=== PATIENT | male | born 1955 | race African-American/Black ===

== ENCOUNTER 2017-02-14 09:10 | Inpatient (IN) ==
[2017-02-14 11:37] LABS: Basophils % 0.4 % (0.0-0.8); Eosinophils # 0.1 10*3/uL (0.0-0.87); Eosinophils % 0.8 % (0.00-10.9); Hematocrit 37.3 VOL% (42.0-52.0); Hemoglobin 12.2 GM/DL (14.0-18.0); Immature Granulocytes % 0.4 %; Immature Granulocytes Absolute 0.03 #; Lymphocytes # 1.4 10*3/uL (1.4-4.0); Lymphocytes % 18.3 % (21.2-54.2); Mean Corpuscular HGB Conc 32.7 GM/DL (32-36); Mean Corpuscular Hemoglobin 28 PG (27-34); Mean Corpuscular Volume 86.5 FL (87-102); Mean Platelet Volume 12.5 FL (9.6-12.0); Monocytes # 0.6 10*3/uL (0.11-0.8); Monocytes % 7.7 % (1.7-12.7); Neutrophils # 5.4 10*3/uL (1.4-7.4); Neutrophils % 72.4 % (38.7-73.9); Red Blood Count 4.31 MC/CUMM (3.8-5.5); Red Cell Distribution Width 13.8 % (9.3-17.3); White Blood Count 7.5 T/CUMM (4-12)
[2017-02-14 11:41] LABS: Platelet Count 81 T/CUMM (130-400)
[2017-02-14 11:57] LABS: Platelet Estimate Decreased
[2017-02-14 12:12] LABS: Lactic Acid 0.8 MMOL/L (0.4-2.0)
[2017-02-14 12:13] LABS: Albumin 3.6 G/DL (3.4-5.0); Bilirubin,Total 0.5 MG/DL (0.2-1.0); Calcium 8.4 MG/DL (8.5-10.1); Osmolality,Calculated 296.4 MOS/KG (273-304); Potassium 3.8 MMOL/L (3.5-5.1); Total Protein 7.6 G/DL (6.4-8.3)
[2017-02-14] MEDS ORDERED: ONDANSETRON 4 MG/2 ML VIAL IV PRN (14:46)
[2017-02-14] MEDS ORDERED: ACETAMINOPHEN 325 MG TABLET PO PRN (14:46)
[2017-02-14] MEDS ORDERED: DEXTROSE 50% 25 GM/50 ML VIAL IV PRN (14:46)
[2017-02-14] MEDS ORDERED: GLUCAGON 1 MG VIAL IM PRN (14:46)
[2017-02-14] MEDS ORDERED: VANCOMYCIN INJ 1,000 MG in SODIUM CHLORIDE 0.9% 250 ML IV SCH (15:00)
[2017-02-14] MEDS ORDERED: VANCOMYCIN INJ 750 MG in SODIUM CHLORIDE 0.9% 150 ML IV PRN (15:52)
[2017-02-14] MEDS ORDERED: CARVEDILOL 12.5 MG TABLET PO PRN (15:53)
[2017-02-14] MEDS ORDERED: LOSARTAN 50 MG TABLET PO PRN (15:53)
[2017-02-14] MEDS ORDERED: amLODIPine 5 MG TABLET PO PRN (15:53)
[2017-02-14] MEDS: INSULIN LISPRO 100 UNIT/ML SUBCUT SCH ×2 (16:09→22:03)
[2017-02-14] MEDS: CIPROFLOXACIN INJ 400 MG in PREMIX 1 EACH IV SCH (16:50)
[2017-02-14] MEDS: SEVELAMER CARBONATE 800 MG TABLET PO SCH (16:52)
[2017-02-14] MEDS ORDERED: VANCOMYCIN INJ 2,000 MG in SODIUM CHLORIDE 0.9% 500 ML IV ONE (17:00)
[2017-02-15] MEDS: INSULIN LISPRO 100 UNIT/ML SUBCUT SCH ×4 (07:26→21:56)
[2017-02-15 07:32] LABS: Basophils % 0.4 % (0.0-0.8); Eosinophils # 0.1 10*3/uL (0.0-0.87); Eosinophils % 1.7 % (0.00-10.9); Hematocrit 32.7 VOL% (42.0-52.0); Immature Granulocytes % 0.4 %; Immature Granulocytes Absolute 0.02 #; Lymphocytes # 1.1 10*3/uL (1.4-4.0); Lymphocytes % 19.8 % (21.2-54.2); Mean Corpuscular HGB Conc 33.6 GM/DL (32-36); Mean Corpuscular Hemoglobin 29 PG (27-34); Mean Corpuscular Volume 85.2 FL (87-102); Mean Platelet Volume 13.2 FL (9.6-12.0); Monocytes # 0.4 10*3/uL (0.11-0.8); Monocytes % 7.7 % (1.7-12.7); Neutrophils # 3.7 10*3/uL (1.4-7.4); Platelet Count 81 T/CUMM (130-400); Red Blood Count 3.84 MC/CUMM (3.8-5.5); Red Cell Distribution Width 13.6 % (9.3-17.3); White Blood Count 5.3 T/CUMM (4-12)
[2017-02-15 07:58] LABS: Hypochromasia 1+
[2017-02-15 08:03] LABS: Albumin 3.1 G/DL (3.4-5.0); Bilirubin,Total 0.9 MG/DL (0.2-1.0); Calcium 7.9 MG/DL (8.5-10.1); Osmolality,Calculated 296.5 MOS/KG (273-304); Potassium 3.6 MMOL/L (3.5-5.1); Total Protein 6.5 G/DL (6.4-8.3)
[2017-02-15 08:13] LABS: Calcium 7.7 MG/DL (8.5-10.1); Osmolality,Calculated 294.7 MOS/KG (273-304); Potassium 3.6 MMOL/L (3.5-5.1)
[2017-02-15] MEDS: SEVELAMER CARBONATE 800 MG TABLET PO SCH ×2 (08:28→17:20)
[2017-02-15] MEDS ORDERED: HEPARIN 10,000 UNIT/10 ML VIAL IV SCH (17:30)
[2017-02-15] MEDS ORDERED: VANCOMYCIN INJ 750 MG in SODIUM CHLORIDE 0.9% 150 ML IV ONE ×2 (21:00→23:30)
[2017-02-15] MEDS: CIPROFLOXACIN INJ 400 MG in PREMIX 1 EACH IV SCH (21:53)
[2017-02-16] MEDS: INSULIN LISPRO 100 UNIT/ML SUBCUT SCH ×3 (09:04→16:40)
[2017-02-16] MEDS: SEVELAMER CARBONATE 800 MG TABLET PO SCH ×2 (09:05→17:22)
[2017-02-16 11:55] VITALS: BP 160/96
[2017-02-16] MEDS ORDERED: VANCOMYCIN INJ 750 MG in SODIUM CHLORIDE 0.9% 150 ML IV ONE (16:00)
== END 2017-02-16 20:45 | disposition home or self-care (01) | DRG 555 ==
LOC: N.ED 09:10 → N.EDINP 12:42 → SUATTDRO 12:42 → N.EDINP 15:10 → N.5E 15:46
PROVIDERS: ADMIT Internal Medicine; ATTEND Internal Medicine

== ENCOUNTER 2018-04-05 17:09 | Inpatient (IN) ==
[2018-04-05] MEDS ORDERED: ALBUTEROL/IPRATROPIUM 3 ML NEB RESP TX STA ×2 (17:45→20:57)
[2018-04-05] MEDS ORDERED: methylPREDNISolone SOD SUC 125 MG/2 ML VIAL IV STA (17:45)
[2018-04-05 18:42] LABS: Basophils % 0.5 % (0.0-0.8); Eosinophils # 0.1 10*3/uL (0.0-0.87); Eosinophils % 1.4 % (0.00-10.9); Hematocrit 37.7 VOL% (42.0-52.0); Immature Granulocytes % 0.5 %; Immature Granulocytes Absolute 0.02 #; Lymphocytes # 0.9 10*3/uL (1.4-4.0); Lymphocytes % 20.3 % (21.2-54.2); Mean Corpuscular HGB Conc 31.8 GM/DL (32-36); Mean Corpuscular Hemoglobin 30 PG (27-34); Mean Corpuscular Volume 93.5 FL (87-102); Mean Platelet Volume 12.1 FL (9.6-12.0); Monocytes # 0.3 10*3/uL (0.11-0.8); Monocytes % 7.7 % (1.7-12.7); Neutrophils # 3.1 10*3/uL (1.4-7.4); Neutrophils % 69.6 % (38.7-73.9); Platelet Count 62 T/CUMM (130-400); Red Blood Count 4.03 MC/CUMM (3.8-5.5); Red Cell Distribution Width 17.1 % (9.3-17.3); White Blood Count 4.4 T/CUMM (4-12)
[2018-04-05 18:50] LABS: INR 1.2; PT Patient Result 12.5 SECS
[2018-04-05 19:14] LABS: Albumin 3.7 G/DL (3.4-5.0); Bilirubin,Total 1.9 MG/DL (0.2-1.0); Calcium 8.9 MG/DL (8.5-10.1); Potassium 3.1 MMOL/L (3.5-5.1); Total Protein 8.2 G/DL (6.4-8.3)
[2018-04-05] MEDS ORDERED: hydrALAZINE 20 MG/1 ML VIAL IV STA (20:42)
[2018-04-05] MEDS ORDERED: LEVOFLOXACIN INJ 500 MG in PREMIX 1 EACH IV STA (20:56)
[2018-04-05] MEDS ORDERED: ALBUTEROL 2.5 MG/3 ML NEB RESP TX PRN (23:50)
[2018-04-05] MEDS ORDERED: ONDANSETRON 4 MG/2 ML VIAL IV PRN (23:58)
[2018-04-05] MEDS ORDERED: DOCUSATE SODIUM 100 MG CAPSULE PO PRN (23:58)
[2018-04-05] MEDS ORDERED: DEXTROSE 50% 25 GM/50 ML SYRINGE IV PRN (23:58)
[2018-04-05] MEDS ORDERED: GLUCAGON 1 MG VIAL IM PRN (23:58)
[2018-04-05] MEDS ORDERED: ACETAMINOPHEN 325 MG TABLET PO PRN (23:58)
[2018-04-06] MEDS: ALBUTEROL/IPRATROPIUM 3 ML NEB RESP TX SCH ×4 (00:19→19:57)
[2018-04-06] MEDS ORDERED: AZTREONAM 2,000 MG in SODIUM CHLORIDE 0.9% 100 ML IV ONE (02:00)
[2018-04-06 04:57] LABS: Basophils % 0.4 % (0.0-0.8); Hematocrit 32.4 VOL% (42.0-52.0); Hemoglobin 10.1 GM/DL (14.0-18.0); Immature Granulocytes % 0.4 %; Immature Granulocytes Absolute 0.01 #; Lymphocytes # 0.2 10*3/uL (1.4-4.0); Lymphocytes % 9.2 % (21.2-54.2); Mean Corpuscular HGB Conc 31.2 GM/DL (32-36); Mean Corpuscular Hemoglobin 29 PG (27-34); Mean Corpuscular Volume 92.6 FL (87-102); Mean Platelet Volume 13.6 FL (9.6-12.0); Monocytes # 0.1 10*3/uL (0.11-0.8); Monocytes % 2.4 % (1.7-12.7); Neutrophils # 2.2 10*3/uL (1.4-7.4); Neutrophils % 87.6 % (38.7-73.9); Platelet Count 61 T/CUMM (130-400); Red Cell Distribution Width 16.9 % (9.3-17.3); White Blood Count 2.5 T/CUMM (4-12)
[2018-04-06 05:13] LABS: Calcium 8.5 MG/DL (8.5-10.1); Osmolality,Calculated 279.8 MOS/KG (273-304); Potassium 3.3 MMOL/L (3.5-5.1)
[2018-04-06] MEDS: INSULIN LISPRO 100 UNIT/ML SUBCUT SCH ×3 (07:26→17:18)
[2018-04-06] MEDS ORDERED: PANTOPRAZOLE 40 MG TABLET PO SCH (09:00)
[2018-04-06 09:06] LABS: Band Neutrophils 1 % (0-10); Hypochromasia 1+; Lymphocytes 7 % (20-55); Platelet Estimate Decreased; Polychromasia Slight; Segmented Neutrophils 91 % (50-85); Total Cells Counted 100
[2018-04-06] MEDS: amLODIPine 5 MG TABLET PO SCH (09:35)
[2018-04-06] MEDS: SEVELAMER CARBONATE 800 MG TABLET PO SCH ×2 (09:36→17:37)
[2018-04-06] MEDS: guaiFENesin/DM ER 600-30 MG TABLET PO SCH ×2 (09:36→20:40)
[2018-04-06] MEDS: CARVEDILOL 25 MG TABLET PO SCH ×2 (09:36→17:37)
[2018-04-06] MEDS: GABAPENTIN 100 MG CAPSULE PO SCH ×3 (09:36→20:40)
[2018-04-06] MEDS: LOSARTAN 50 MG TABLET PO SCH (09:36)
[2018-04-06] MEDS: AZTREONAM 1,000 MG in SODIUM CHLORIDE 0.9% 100 ML IV SCH ×3 (09:36→20:41)
[2018-04-06] MEDS: POTASSIUM CHLORIDE 20 MEQ TABLET PO PRN ×3 (12:16→17:37)
[2018-04-06] MEDS: ATORVASTATIN 10 MG TABLET PO SCH (20:40)
[2018-04-07] MEDS: INSULIN LISPRO 100 UNIT/ML SUBCUT SCH ×5 (02:02→21:08)
[2018-04-07] MEDS: ALBUTEROL/IPRATROPIUM 3 ML NEB RESP TX SCH ×4 (02:02→19:02)
[2018-04-07] MEDS: AZTREONAM 1,000 MG in SODIUM CHLORIDE 0.9% 100 ML IV SCH ×4 (02:57→20:12)
[2018-04-07 06:25] LABS: Basophils % 0.2 % (0.0-0.8); Hematocrit 33.5 VOL% (42.0-52.0); Hemoglobin 10.6 GM/DL (14.0-18.0); Immature Granulocytes % 0.2 %; Immature Granulocytes Absolute 0.01 #; Lymphocytes # 0.5 10*3/uL (1.4-4.0); Lymphocytes % 11.2 % (21.2-54.2); Mean Corpuscular HGB Conc 31.6 GM/DL (32-36); Mean Corpuscular Hemoglobin 29 PG (27-34); Mean Corpuscular Volume 92.8 FL (87-102); Mean Platelet Volume 13.5 FL (9.6-12.0); Monocytes # 0.3 10*3/uL (0.11-0.8); Monocytes % 5.8 % (1.7-12.7); Neutrophils # 3.5 10*3/uL (1.4-7.4); Neutrophils % 82.6 % (38.7-73.9); Red Blood Count 3.61 MC/CUMM (3.8-5.5); Red Cell Distribution Width 16.7 % (9.3-17.3); White Blood Count 4.3 T/CUMM (4-12)
[2018-04-07 06:41] LABS: Platelet Count 52 T/CUMM (130-400)
[2018-04-07 06:50] LABS: Calcium 8.7 MG/DL (8.5-10.1); Osmolality,Calculated 277.2 MOS/KG (273-304); Potassium 4.6 MMOL/L (3.5-5.1)
[2018-04-07 06:51] LABS: Calcium 8.9 MG/DL (8.5-10.1); Osmolality,Calculated 275.4 MOS/KG (273-304); Potassium 4.5 MMOL/L (3.5-5.1)
[2018-04-07] MEDS: guaiFENesin/DM ER 600-30 MG TABLET PO SCH ×2 (09:17→20:12)
[2018-04-07] MEDS: SEVELAMER CARBONATE 800 MG TABLET PO SCH ×2 (09:17→16:52)
[2018-04-07] MEDS: GABAPENTIN 100 MG CAPSULE PO SCH ×3 (09:17→20:12)
[2018-04-07] MEDS: amLODIPine 5 MG TABLET PO SCH (09:17)
[2018-04-07] MEDS: LOSARTAN 50 MG TABLET PO SCH (09:17)
[2018-04-07] MEDS: CARVEDILOL 25 MG TABLET PO SCH ×2 (09:17→16:52)
[2018-04-07] MEDS: predniSONE 20 MG TABLET PO SCH (10:48)
[2018-04-07 14:57] LABS: Calcium 8.8 MG/DL (8.5-10.1); Osmolality,Calculated 280.1 MOS/KG (273-304); Potassium 4.9 MMOL/L (3.5-5.1); Total Protein 7.1 G/DL (6.4-8.3)
[2018-04-07 15:06] LABS: Basophils % 0.5 % (0.0-0.8); Eosinophils % 0.5 % (0.00-10.9); Hemoglobin 10.6 GM/DL (14.0-18.0); Immature Granulocytes % 0.2 %; Immature Granulocytes Absolute 0.01 #; Lymphocytes # 0.4 10*3/uL (1.4-4.0); Lymphocytes % 8.4 % (21.2-54.2); Mean Corpuscular HGB Conc 31.2 GM/DL (32-36); Mean Corpuscular Hemoglobin 30 PG (27-34); Mean Corpuscular Volume 94.7 FL (87-102); Mean Platelet Volume 13.5 FL (9.6-12.0); Monocytes # 0.3 10*3/uL (0.11-0.8); Monocytes % 6.3 % (1.7-12.7); Neutrophils # 3.5 10*3/uL (1.4-7.4); Neutrophils % 84.1 % (38.7-73.9); Platelet Count 51 T/CUMM (130-400); Red Blood Count 3.59 MC/CUMM (3.8-5.5); White Blood Count 4.2 T/CUMM (4-12)
[2018-04-07 15:22] LABS: INR 1.3; PT Patient Result 13.8 SECS
[2018-04-07 16:13] LABS: Platelet Estimate Decreased
[2018-04-07] MEDS: ATORVASTATIN 10 MG TABLET PO SCH (20:12)
[2018-04-07] MEDS: LEVOFLOXACIN INJ 250 MG in PREMIX 1 EACH IV SCH (20:48)
[2018-04-08] MEDS: ALBUTEROL/IPRATROPIUM 3 ML NEB RESP TX SCH ×4 (00:30→19:20)
[2018-04-08] MEDS: AZTREONAM 1,000 MG in SODIUM CHLORIDE 0.9% 100 ML IV SCH ×4 (02:59→22:38)
[2018-04-08 06:41] LABS: Hematocrit 32.4 VOL% (42.0-52.0); Hemoglobin 10.2 GM/DL (14.0-18.0); Immature Granulocytes % 0.6 %; Immature Granulocytes Absolute 0.02 #; Lymphocytes # 0.3 10*3/uL (1.4-4.0); Lymphocytes % 8.8 % (21.2-54.2); Mean Corpuscular HGB Conc 31.5 GM/DL (32-36); Mean Corpuscular Hemoglobin 29 PG (27-34); Mean Corpuscular Volume 93.4 FL (87-102); Monocytes # 0.3 10*3/uL (0.11-0.8); Monocytes % 7.9 % (1.7-12.7); Neutrophils # 2.7 10*3/uL (1.4-7.4); Neutrophils % 82.7 % (38.7-73.9); Platelet Count 49 T/CUMM (130-400); Red Blood Count 3.47 MC/CUMM (3.8-5.5); Red Cell Distribution Width 16.8 % (9.3-17.3); White Blood Count 3.3 T/CUMM (4-12)
[2018-04-08 07:08] LABS: Lymphocytes 5 % (20-55); Platelet Estimate Decreased; Segmented Neutrophils 88 % (50-85); Total Cells Counted 100
[2018-04-08 07:09] LABS: Hypochromasia 1+; Ovalocytes Slight
[2018-04-08 07:20] LABS: Albumin 2.8 G/DL (3.4-5.0); Bilirubin,Total 1.2 MG/DL (0.2-1.0); Osmolality,Calculated 283.2 MOS/KG (273-304); Potassium 4.8 MMOL/L (3.5-5.1); Total Protein 7.1 G/DL (6.4-8.3)
[2018-04-08] MEDS: INSULIN LISPRO 100 UNIT/ML SUBCUT SCH ×4 (08:55→22:34)
[2018-04-08] MEDS: SEVELAMER CARBONATE 800 MG TABLET PO SCH ×2 (08:56→16:42)
[2018-04-08] MEDS: GABAPENTIN 100 MG CAPSULE PO SCH (08:56)
[2018-04-08] MEDS: guaiFENesin/DM ER 600-30 MG TABLET PO SCH ×2 (08:56→22:33)
[2018-04-08] MEDS: predniSONE 20 MG TABLET PO SCH (08:56)
[2018-04-08] MEDS: LOSARTAN 50 MG TABLET PO SCH (09:08)
[2018-04-08] MEDS: CARVEDILOL 25 MG TABLET PO SCH ×2 (09:08→16:42)
[2018-04-08] MEDS: amLODIPine 5 MG TABLET PO SCH (09:09)
[2018-04-08 11:23] LABS: Hepatitis A Ab IgM Quant 0.47 Index; Hepatitis A Ab IgM Result Negative (Negative); Hepatitis B Core IgM Quant 0.11 Index; Hepatitis B Core IgM Result Negative (Negative); Hepatitis B Surface Ag Quant < 0.10 Index; Hepatitis B Surface Ag Result Negative (Negative); Hepatitis C Virus Ab Quant 0.06 Index; Hepatitis C Virus Ab Result Negative (Negative)
[2018-04-08] MEDS: ATORVASTATIN 10 MG TABLET PO SCH (22:33)
[2018-04-08] MEDS: GABAPENTIN 300 MG CAPSULE PO SCH (22:33)
[2018-04-09] MEDS: ALBUTEROL/IPRATROPIUM 3 ML NEB RESP TX SCH ×4 (00:03→19:59)
[2018-04-09] MEDS: AZTREONAM 1,000 MG in SODIUM CHLORIDE 0.9% 100 ML IV SCH ×4 (04:52→23:10)
[2018-04-09] MEDS: INSULIN LISPRO 100 UNIT/ML SUBCUT SCH ×4 (08:22→21:02)
[2018-04-09] MEDS: guaiFENesin/DM ER 600-30 MG TABLET PO SCH ×2 (09:04→22:15)
[2018-04-09] MEDS: SEVELAMER CARBONATE 800 MG TABLET PO SCH ×2 (09:04→17:05)
[2018-04-09] MEDS: amLODIPine 5 MG TABLET PO SCH (09:05)
[2018-04-09] MEDS: CARVEDILOL 25 MG TABLET PO SCH ×2 (09:05→17:05)
[2018-04-09] MEDS: predniSONE 20 MG TABLET PO SCH (09:05)
[2018-04-09] MEDS: LOSARTAN 50 MG TABLET PO SCH (09:05)
[2018-04-09] MEDS: GABAPENTIN 300 MG CAPSULE PO SCH (22:15)
[2018-04-09] MEDS: ATORVASTATIN 10 MG TABLET PO SCH (22:15)
[2018-04-09] MEDS: LEVOFLOXACIN INJ 250 MG in PREMIX 1 EACH IV SCH (22:15)
[2018-04-10] MEDS: ALBUTEROL/IPRATROPIUM 3 ML NEB RESP TX SCH ×4 (01:23→19:56)
[2018-04-10] MEDS: AZTREONAM 1,000 MG in SODIUM CHLORIDE 0.9% 100 ML IV SCH ×4 (05:59→22:25)
[2018-04-10] MEDS: INSULIN LISPRO 100 UNIT/ML SUBCUT SCH ×4 (08:06→22:23)
[2018-04-10] MEDS: SEVELAMER CARBONATE 800 MG TABLET PO SCH ×2 (08:30→16:42)
[2018-04-10] MEDS: guaiFENesin/DM ER 600-30 MG TABLET PO SCH ×2 (08:30→22:21)
[2018-04-10] MEDS: CARVEDILOL 25 MG TABLET PO SCH ×2 (08:30→16:42)
[2018-04-10] MEDS: predniSONE 20 MG TABLET PO SCH (08:30)
[2018-04-10] MEDS: amLODIPine 5 MG TABLET PO SCH (08:30)
[2018-04-10] MEDS: LOSARTAN 50 MG TABLET PO SCH (08:31)
[2018-04-10] MEDS: GABAPENTIN 300 MG CAPSULE PO SCH (22:21)
[2018-04-10] MEDS: ATORVASTATIN 10 MG TABLET PO SCH (22:22)
[2018-04-11] MEDS: ALBUTEROL/IPRATROPIUM 3 ML NEB RESP TX SCH ×4 (00:55→19:20)
[2018-04-11] MEDS: AZTREONAM 1,000 MG in SODIUM CHLORIDE 0.9% 100 ML IV SCH (06:44)
[2018-04-11] MEDS: INSULIN LISPRO 100 UNIT/ML SUBCUT SCH ×4 (07:42→21:24)
[2018-04-11] MEDS: SEVELAMER CARBONATE 800 MG TABLET PO SCH ×2 (08:41→16:38)
[2018-04-11] MEDS: LEVOFLOXACIN 500 MG TABLET PO SCH (08:42)
[2018-04-11] MEDS: guaiFENesin/DM ER 600-30 MG TABLET PO SCH ×2 (08:42→21:22)
[2018-04-11] MEDS: predniSONE 20 MG TABLET PO SCH (08:43)
[2018-04-11] MEDS: LOSARTAN 50 MG TABLET PO SCH (08:43)
[2018-04-11] MEDS: amLODIPine 5 MG TABLET PO SCH (08:44)
[2018-04-11] MEDS: CARVEDILOL 25 MG TABLET PO SCH ×2 (08:44→16:38)
[2018-04-11] MEDS ORDERED: TUBERCULIN SKIN TEST 0.1 ML SYRINGE INTRADERM ONE (16:08)
[2018-04-11] MEDS: GABAPENTIN 300 MG CAPSULE PO SCH (21:22)
[2018-04-11] MEDS: ATORVASTATIN 10 MG TABLET PO SCH (21:23)
[2018-04-12] MEDS: ALBUTEROL/IPRATROPIUM 3 ML NEB RESP TX SCH ×4 (00:01→19:02)
[2018-04-12] MEDS: INSULIN LISPRO 100 UNIT/ML SUBCUT SCH ×4 (09:46→20:53)
[2018-04-12] MEDS: amLODIPine 5 MG TABLET PO SCH (12:47)
[2018-04-12] MEDS: guaiFENesin/DM ER 600-30 MG TABLET PO SCH ×2 (12:47→20:53)
[2018-04-12] MEDS: predniSONE 20 MG TABLET PO SCH (12:47)
[2018-04-12] MEDS: SEVELAMER CARBONATE 800 MG TABLET PO SCH ×2 (12:47→16:55)
[2018-04-12] MEDS: CARVEDILOL 25 MG TABLET PO SCH ×2 (12:48→16:56)
[2018-04-12] MEDS: LOSARTAN 50 MG TABLET PO SCH (12:48)
[2018-04-12] MEDS: EPOETIN ALFA 2,000 UNIT/1 ML VIAL SUBCUT SCH (14:36)
[2018-04-12] MEDS: GABAPENTIN 300 MG CAPSULE PO SCH (20:53)
[2018-04-12] MEDS: ATORVASTATIN 10 MG TABLET PO SCH (20:53)
[2018-04-13] MEDS: ALBUTEROL/IPRATROPIUM 3 ML NEB RESP TX SCH ×5 (00:59→19:30)
[2018-04-13] MEDS: amLODIPine 5 MG TABLET PO SCH (08:59)
[2018-04-13] MEDS: LEVOFLOXACIN 500 MG TABLET PO SCH (09:00)
[2018-04-13] MEDS: guaiFENesin/DM ER 600-30 MG TABLET PO SCH ×2 (09:00→21:14)
[2018-04-13] MEDS: CARVEDILOL 25 MG TABLET PO SCH ×2 (09:00→16:59)
[2018-04-13] MEDS: LOSARTAN 50 MG TABLET PO SCH (09:00)
[2018-04-13] MEDS: predniSONE 20 MG TABLET PO SCH (09:00)
[2018-04-13] MEDS: SEVELAMER CARBONATE 800 MG TABLET PO SCH ×2 (09:00→16:58)
[2018-04-13] MEDS: INSULIN LISPRO 100 UNIT/ML SUBCUT SCH ×4 (09:01→21:13)
[2018-04-13] MEDS: ALUMINUM/MAGNES/SIMETH MAX STR 30 ML UDCUP PO PRN (14:46)
[2018-04-13] MEDS: ATORVASTATIN 10 MG TABLET PO SCH (21:14)
[2018-04-13] MEDS: GABAPENTIN 300 MG CAPSULE PO SCH (21:14)
[2018-04-14] MEDS: ALUMINUM/MAGNES/SIMETH MAX STR 30 ML UDCUP PO PRN ×2 (02:32→20:57)
[2018-04-14] MEDS: ALBUTEROL/IPRATROPIUM 3 ML NEB RESP TX SCH ×3 (06:55→20:00)
[2018-04-14] MEDS: INSULIN LISPRO 100 UNIT/ML SUBCUT SCH ×4 (07:50→21:05)
[2018-04-14] MEDS: SEVELAMER CARBONATE 800 MG TABLET PO SCH ×2 (08:22→17:52)
[2018-04-14] MEDS: guaiFENesin/DM ER 600-30 MG TABLET PO SCH ×2 (08:22→20:57)
[2018-04-14] MEDS: CARVEDILOL 25 MG TABLET PO SCH ×2 (08:23→17:50)
[2018-04-14] MEDS: LOSARTAN 50 MG TABLET PO SCH (08:23)
[2018-04-14] MEDS: amLODIPine 5 MG TABLET PO SCH (08:23)
[2018-04-14] MEDS: predniSONE 20 MG TABLET PO SCH (08:23)
[2018-04-14] MEDS: ATORVASTATIN 10 MG TABLET PO SCH (20:57)
[2018-04-14] MEDS: GABAPENTIN 300 MG CAPSULE PO SCH (20:57)
[2018-04-15] MEDS: ALBUTEROL/IPRATROPIUM 3 ML NEB RESP TX SCH ×4 (01:07→20:52)
[2018-04-15] MEDS: INSULIN LISPRO 100 UNIT/ML SUBCUT SCH ×4 (08:00→20:42)
[2018-04-15] MEDS: amLODIPine 5 MG TABLET PO SCH (09:00)
[2018-04-15] MEDS: guaiFENesin/DM ER 600-30 MG TABLET PO SCH ×2 (09:00→21:18)
[2018-04-15] MEDS: CARVEDILOL 25 MG TABLET PO SCH ×2 (09:00→17:21)
[2018-04-15] MEDS: SEVELAMER CARBONATE 800 MG TABLET PO SCH ×2 (09:00→17:22)
[2018-04-15] MEDS: LOSARTAN 50 MG TABLET PO SCH (09:00)
[2018-04-15] MEDS: predniSONE 20 MG TABLET PO SCH (09:00)
[2018-04-15] MEDS: EPOETIN ALFA 2,000 UNIT/1 ML VIAL SUBCUT SCH (09:30)
[2018-04-15] MEDS ORDERED: PHENOL 1.4% THROAT SPRAY 177 ML BOTTLE PO PRN (13:00)
[2018-04-15] MEDS: PANTOPRAZOLE 40 MG TABLET PO SCH (17:22)
[2018-04-15] MEDS: GABAPENTIN 300 MG CAPSULE PO SCH (21:18)
[2018-04-15] MEDS: ATORVASTATIN 10 MG TABLET PO SCH (21:18)
[2018-04-15] MEDS: LEVOFLOXACIN 500 MG TABLET PO SCH (22:19)
[2018-04-16] MEDS: ALBUTEROL/IPRATROPIUM 3 ML NEB RESP TX SCH ×2 (01:44→07:34)
[2018-04-16 05:37] LABS: Basophils % 0.2 % (0.0-0.8); Eosinophils % 0.2 % (0.00-10.9); Hematocrit 39.6 VOL% (42.0-52.0); Immature Granulocytes % 1.3 %; Immature Granulocytes Absolute 0.08 #; Lymphocytes # 0.5 10*3/uL (1.4-4.0); Lymphocytes % 8.5 % (21.2-54.2); Mean Corpuscular HGB Conc 30.3 GM/DL (32-36); Mean Corpuscular Hemoglobin 29 PG (27-34); Mean Corpuscular Volume 95.9 FL (87-102); Mean Platelet Volume 12.5 FL (9.6-12.0); Monocytes # 0.6 10*3/uL (0.11-0.8); Monocytes % 9.1 % (1.7-12.7); NRBC # 0.11 10*3/uL; Neutrophils # 5.1 10*3/uL (1.4-7.4); Neutrophils % 80.7 % (38.7-73.9); Red Blood Count 4.13 MC/CUMM (3.8-5.5); Red Cell Distribution Width 17.1 % (9.3-17.3); White Blood Count 6.3 T/CUMM (4-12)
[2018-04-16] MEDS: PANTOPRAZOLE 40 MG TABLET PO SCH (05:37)
[2018-04-16 05:41] LABS: Platelet Count 45 T/CUMM (130-400)
[2018-04-16 06:21] LABS: Calcium 7.8 MG/DL (8.5-10.1)
[2018-04-16 06:33] LABS: Potassium 5.3 MMOL/L (3.5-5.1)
[2018-04-16 06:35] LABS: Osmolality,Calculated 287.5 MOS/KG (273-304)
[2018-04-16] MEDS: INSULIN LISPRO 100 UNIT/ML SUBCUT SCH ×2 (09:12→12:22)
[2018-04-16] MEDS: SEVELAMER CARBONATE 800 MG TABLET PO SCH (09:14)
[2018-04-16] MEDS: CARVEDILOL 25 MG TABLET PO SCH (09:14)
[2018-04-16] MEDS: predniSONE 20 MG TABLET PO SCH (09:14)
[2018-04-16] MEDS: amLODIPine 5 MG TABLET PO SCH (09:14)
[2018-04-16] MEDS: guaiFENesin/DM ER 600-30 MG TABLET PO SCH (09:14)
[2018-04-16] MEDS: LOSARTAN 50 MG TABLET PO SCH (09:14)
[2018-04-16 11:43] VITALS: BP 131/74
== END 2018-04-16 14:01 | DRG 871 ==
LOC: EDUNIT# → EDBD → N.ED 17:09 → SUATTDRO 23:38 → N.EDINP 23:38 → N.2E 04-06 01:07
PROVIDERS: ADMIT Internal Medicine; ATTEND Internal Medicine

== ENCOUNTER 2018-04-20 12:53 | Inpatient (IN) ==
[2018-04-20] MEDS ORDERED: ALBUTEROL 2.5 MG/3 ML NEB RESP TX STA (14:04)
[2018-04-20 14:13] LABS: Basophils % 0.1 % (0.0-0.8); Eosinophils # 0.1 10*3/uL (0.0-0.87); Eosinophils % 1.4 % (0.00-10.9); Hematocrit 37.9 VOL% (42.0-52.0); Immature Granulocytes % 1.1 %; Immature Granulocytes Absolute 0.08 #; Lymphocytes # 0.7 10*3/uL (1.4-4.0); Lymphocytes % 8.9 % (21.2-54.2); Mean Corpuscular HGB Conc 31.7 GM/DL (32-36); Mean Corpuscular Hemoglobin 29 PG (27-34); Mean Corpuscular Volume 92.2 FL (87-102); Monocytes # 0.9 10*3/uL (0.11-0.8); Monocytes % 12.3 % (1.7-12.7); Neutrophils # 5.6 10*3/uL (1.4-7.4); Neutrophils % 76.2 % (38.7-73.9); Platelet Count 42 T/CUMM (130-400); Red Blood Count 4.11 MC/CUMM (3.8-5.5); Red Cell Distribution Width 17.1 % (9.3-17.3); White Blood Count 7.3 T/CUMM (4-12)
[2018-04-20 14:28] LABS: Albumin 2.6 G/DL (3.4-5.0); Calcium 7.3 MG/DL (8.5-10.1); Osmolality,Calculated 285.4 MOS/KG (273-304); Total Protein 6.7 G/DL (6.4-8.3)
[2018-04-20] MEDS: DOPamine 800 MG/250 ML PREMIX IV PRN (14:55)
[2018-04-20] MEDS ORDERED: ALBUMIN 25% 25 GM in PREMIX 1 EACH IV PRN (15:40)
[2018-04-20] MEDS ORDERED: DEXTROSE 50% 25 GM/50 ML VIAL IV PRN (16:01)
[2018-04-20] MEDS ORDERED: GLUCAGON 1 MG VIAL IM PRN (16:01)
[2018-04-20] MEDS ORDERED: VANCOMYCIN INJ 1,500 MG in SODIUM CHLORIDE 0.9% 500 ML IV PRN (16:57)
[2018-04-20] MEDS: methylPREDNISolone SOD SUC 125 MG/2 ML VIAL IV SCH (17:45)
[2018-04-20] MEDS: PANTOPRAZOLE 40 MG VIAL IV SCH (17:45)
[2018-04-20] MEDS ORDERED: AZTREONAM 1,000 MG in SODIUM CHLORIDE 0.9% 100 ML IV ONE (18:00)
[2018-04-20] MEDS: INSULIN LISPRO 100 UNIT/ML SUBCUT SCH (18:07)
[2018-04-20 18:30] LABS: ABG Base Excess -2.6 MMOL/L (-2.5-2.5); ABG HCO3 22.2 MMOL/L (20-26); ABG Oxygen Saturation 95.9 % (95-100); ABG PCO2 40.6 MM HG (35-48); ABG PH 7.356 (7.35-7.45); ABG PO2 83.9 MM HG (80-95)
[2018-04-20] MEDS: ALBUTEROL/IPRATROPIUM 3 ML NEB RESP TX SCH (19:18)
[2018-04-21] MEDS: ALBUTEROL/IPRATROPIUM 3 ML NEB RESP TX SCH ×4 (00:12→20:27)
[2018-04-21] MEDS: INSULIN LISPRO 100 UNIT/ML SUBCUT SCH ×4 (00:14→18:23)
[2018-04-21] MEDS: methylPREDNISolone SOD SUC 125 MG/2 ML VIAL IV SCH ×3 (00:20→15:18)
[2018-04-21] MEDS: SODIUM CHLORIDE 0.9% IV SCH ×3 (02:15→18:09)
[2018-04-21] MEDS: AZTREONAM IV SCH ×3 (02:15→18:09)
[2018-04-21] MEDS: DOPamine 800 MG/250 ML PREMIX IV PRN (04:08)
[2018-04-21 04:52] LABS: Hematocrit 41.8 VOL% (42.0-52.0); Hemoglobin 13.1 GM/DL (14.0-18.0); Immature Granulocytes % 0.2 %; Immature Granulocytes Absolute 0.01 #; Lymphocytes # 0.4 10*3/uL (1.4-4.0); Lymphocytes % 6.7 % (21.2-54.2); Mean Corpuscular HGB Conc 31.3 GM/DL (32-36); Mean Corpuscular Hemoglobin 29 PG (27-34); Mean Corpuscular Volume 93.5 FL (87-102); Monocytes # 0.1 10*3/uL (0.11-0.8); Monocytes % 1.5 % (1.7-12.7); Neutrophils # 4.8 10*3/uL (1.4-7.4); Neutrophils % 91.6 % (38.7-73.9); Platelet Count 40 T/CUMM (130-400); Red Blood Count 4.47 MC/CUMM (3.8-5.5); Red Cell Distribution Width 17.2 % (9.3-17.3); White Blood Count 5.2 T/CUMM (4-12)
[2018-04-21 05:29] LABS: Albumin 2.4 G/DL (3.4-5.0); Bilirubin,Total 0.9 MG/DL (0.2-1.0); Calcium 7.5 MG/DL (8.5-10.1); Osmolality,Calculated 284.9 MOS/KG (273-304); Total Protein 7.1 G/DL (6.4-8.3)
[2018-04-21 06:40] LABS: Band Neutrophils 2 % (0-10); Lymphocytes 8 % (20-55); Segmented Neutrophils 87 % (50-85); Total Cells Counted 100
[2018-04-21 06:41] LABS: Anisocytosis 1+; Ovalocytes 1+; Platelet Estimate Decreased
[2018-04-21] MEDS: PANTOPRAZOLE 40 MG VIAL IV SCH (08:37)
[2018-04-21] MEDS ORDERED: SODIUM POLYSTYRENE SULFATE 15 GM/60 ML BOTTLE PO STA (09:08)
[2018-04-21] MEDS: SODIUM POLYSTYRENE SULFATE 15 GM/60 ML BOTTLE PO SCH ×2 (15:18→21:24)
[2018-04-22] MEDS: INSULIN LISPRO 100 UNIT/ML SUBCUT SCH ×4 (01:04→18:05)
[2018-04-22] MEDS: methylPREDNISolone SOD SUC 125 MG/2 ML VIAL IV SCH ×2 (01:04→08:00)
[2018-04-22] MEDS: ALBUTEROL/IPRATROPIUM 3 ML NEB RESP TX SCH ×4 (01:21→19:37)
[2018-04-22] MEDS: SODIUM POLYSTYRENE SULFATE 15 GM/60 ML BOTTLE PO SCH ×2 (02:55→08:01)
[2018-04-22] MEDS: AZTREONAM IV SCH ×3 (03:10→17:53)
[2018-04-22] MEDS: SODIUM CHLORIDE 0.9% IV SCH ×3 (03:10→17:53)
[2018-04-22] MEDS: DOPamine 800 MG/250 ML PREMIX IV PRN (07:14)
[2018-04-22] MEDS: PANTOPRAZOLE 40 MG VIAL IV SCH (09:33)
[2018-04-22] MEDS ORDERED: BENZONATATE 100 MG CAPSULE PO PRN (10:47)
[2018-04-22] MEDS ORDERED: VANCOMYCIN INJ 1,500 MG in SODIUM CHLORIDE 0.9% 500 ML IV ONE (15:30)
[2018-04-22] MEDS: SEVELAMER CARBONATE 800 MG TABLET PO SCH (17:52)
[2018-04-22] MEDS: methylPREDNISolone SOD SUC 40 MG/1 ML VIAL IV SCH (20:34)
[2018-04-22] MEDS: ATORVASTATIN 10 MG TABLET PO SCH (20:34)
[2018-04-23] MEDS: ALBUTEROL/IPRATROPIUM 3 ML NEB RESP TX SCH ×4 (00:52→19:48)
[2018-04-23] MEDS: INSULIN LISPRO 100 UNIT/ML SUBCUT SCH ×4 (01:02→18:13)
[2018-04-23] MEDS: AZTREONAM IV SCH ×3 (02:38→18:23)
[2018-04-23] MEDS: SODIUM CHLORIDE 0.9% IV SCH ×3 (02:38→18:23)
[2018-04-23 05:42] LABS: Hematocrit 33.2 VOL% (42.0-52.0); Hemoglobin 10.7 GM/DL (14.0-18.0); Immature Granulocytes % 0.4 %; Immature Granulocytes Absolute 0.02 #; Lymphocytes # 0.4 10*3/uL (1.4-4.0); Lymphocytes % 7.8 % (21.2-54.2); Mean Corpuscular HGB Conc 32.2 GM/DL (32-36); Mean Corpuscular Hemoglobin 29 PG (27-34); Mean Corpuscular Volume 90.2 FL (87-102); Mean Platelet Volume 13.8 FL (9.6-12.0); Monocytes # 0.2 10*3/uL (0.11-0.8); Monocytes % 4.1 % (1.7-12.7); Neutrophils # 4.5 10*3/uL (1.4-7.4); Neutrophils % 87.7 % (38.7-73.9); Red Blood Count 3.68 MC/CUMM (3.8-5.5); Red Cell Distribution Width 16.4 % (9.3-17.3); White Blood Count 5.1 T/CUMM (4-12)
[2018-04-23 05:56] LABS: Calcium 7.3 MG/DL (8.5-10.1); Osmolality,Calculated 297.1 MOS/KG (273-304); Platelet Count 37 T/CUMM (130-400); Potassium 4.6 MMOL/L (3.5-5.1)
[2018-04-23 05:58] LABS: Calcium 7.3 MG/DL (8.5-10.1); Osmolality,Calculated 298.1 MOS/KG (273-304); Potassium 4.6 MMOL/L (3.5-5.1)
[2018-04-23 06:21] LABS: Band Neutrophils 7 % (0-10); Lymphocytes 8 % (20-55); Segmented Neutrophils 82 % (50-85); Total Cells Counted 100
[2018-04-23 06:22] LABS: Hypochromasia 1+; Microcytosis 1+; Ovalocytes Slight; Target Cells Slight
[2018-04-23 06:23] LABS: Platelet Estimate Decreased
[2018-04-23] MEDS: SEVELAMER CARBONATE 800 MG TABLET PO SCH ×2 (08:16→18:23)
[2018-04-23] MEDS: methylPREDNISolone SOD SUC 40 MG/1 ML VIAL IV SCH ×2 (08:16→20:41)
[2018-04-23] MEDS: PANTOPRAZOLE 40 MG TABLET PO SCH (08:16)
[2018-04-23] MEDS: LEVOTHYROXINE 75 MCG TABLET PO SCH (10:33)
[2018-04-23 11:09] LABS: Follicle Stimulating Hormone 3.6 MIU/ML
[2018-04-23 14:25] LABS: Procalcitonin, S 2.7 ng/mL (<=0.15)
[2018-04-23] MEDS: ATORVASTATIN 10 MG TABLET PO SCH (20:41)
[2018-04-24] MEDS: INSULIN LISPRO 100 UNIT/ML SUBCUT SCH ×4 (00:17→18:14)
[2018-04-24] MEDS: SODIUM CHLORIDE 0.9% IV SCH ×3 (01:04→18:14)
[2018-04-24] MEDS: AZTREONAM IV SCH ×3 (01:04→18:14)
[2018-04-24] MEDS: ALBUTEROL/IPRATROPIUM 3 ML NEB RESP TX SCH ×4 (01:54→19:28)
[2018-04-24] MEDS: LEVOTHYROXINE 75 MCG TABLET PO SCH (06:14)
[2018-04-24] MEDS: PANTOPRAZOLE 40 MG TABLET PO SCH (06:14)
[2018-04-24 07:11] LABS: Hematocrit 32.1 VOL% (42.0-52.0); Hemoglobin 10.5 GM/DL (14.0-18.0); Immature Granulocytes % 0.3 %; Immature Granulocytes Absolute 0.02 #; Lymphocytes # 0.4 10*3/uL (1.4-4.0); Lymphocytes % 6.3 % (21.2-54.2); Mean Corpuscular HGB Conc 32.7 GM/DL (32-36); Mean Corpuscular Hemoglobin 29 PG (27-34); Mean Corpuscular Volume 88.9 FL (87-102); Mean Platelet Volume 12.5 FL (9.6-12.0); Monocytes # 0.1 10*3/uL (0.11-0.8); Monocytes % 2.2 % (1.7-12.7); Neutrophils # 5.3 10*3/uL (1.4-7.4); Neutrophils % 91.2 % (38.7-73.9); Red Blood Count 3.61 MC/CUMM (3.8-5.5); Red Cell Distribution Width 16.2 % (9.3-17.3); White Blood Count 5.8 T/CUMM (4-12)
[2018-04-24 07:13] LABS: Platelet Count 28 T/CUMM (130-400)
[2018-04-24 07:19] LABS: Calcium 7.2 MG/DL (8.5-10.1); Potassium 4.9 MMOL/L (3.5-5.1)
[2018-04-24 07:33] LABS: Band Neutrophils 1 % (0-10); Hypochromasia 1+; Lymphocytes 8 % (20-55); Microcytosis Slight; Ovalocytes Slight; Platelet Estimate Decreased; Segmented Neutrophils 90 % (50-85); Total Cells Counted 100
[2018-04-24] MEDS: SEVELAMER CARBONATE 800 MG TABLET PO SCH ×2 (08:55→18:13)
[2018-04-24] MEDS: methylPREDNISolone SOD SUC 40 MG/1 ML VIAL IV SCH ×2 (08:55→21:08)
[2018-04-24] MEDS ORDERED: VANCOMYCIN INJ 1,500 MG in SODIUM CHLORIDE 0.9% 500 ML IV ONE ×2 (09:00→17:00)
[2018-04-24] MEDS: ATORVASTATIN 10 MG TABLET PO SCH (21:08)
[2018-04-25] MEDS: INSULIN LISPRO 100 UNIT/ML SUBCUT SCH ×4 (01:32→17:37)
[2018-04-25] MEDS: AZTREONAM IV SCH (02:04)
[2018-04-25] MEDS: SODIUM CHLORIDE 0.9% IV SCH (02:04)
[2018-04-25] MEDS: LEVOTHYROXINE 75 MCG TABLET PO SCH (06:07)
[2018-04-25] MEDS: ALBUTEROL/IPRATROPIUM 3 ML NEB RESP TX SCH ×4 (07:43→18:10)
[2018-04-25] MEDS: SEVELAMER CARBONATE 800 MG TABLET PO SCH ×2 (08:43→16:56)
[2018-04-25] MEDS: methylPREDNISolone SOD SUC 40 MG/1 ML VIAL IV SCH ×2 (08:43→21:24)
[2018-04-25] MEDS: ATORVASTATIN 10 MG TABLET PO SCH (21:23)
[2018-04-26] MEDS: INSULIN LISPRO 100 UNIT/ML SUBCUT SCH ×3 (00:14→12:37)
[2018-04-26] MEDS: ALBUTEROL/IPRATROPIUM 3 ML NEB RESP TX SCH ×3 (00:54→13:49)
[2018-04-26] MEDS: LEVOTHYROXINE 75 MCG TABLET PO SCH (06:47)
[2018-04-26] MEDS: SEVELAMER CARBONATE 800 MG TABLET PO SCH (12:32)
[2018-04-26] MEDS: methylPREDNISolone SOD SUC 40 MG/1 ML VIAL IV SCH (12:33)
[2018-04-26 16:37] VITALS: BP 108/56
== END 2018-04-26 16:55 | disposition swing bed (61) | DRG 871 ==
LOC: EDUNIT# → EDBD → N.ED 12:53 → SUATTDRO 15:37 → N.EDINP 15:37 → N.CC 16:25 → N.5E 04-23 09:55
PROVIDERS: ADMIT Internal Medicine; ATTEND Hospitalist